=== PATIENT | female | born 1965 | race Hispanic/Latino ===

== ENCOUNTER 2017-04-01 15:25 | Emergency (ER) | payer OTHER, SELFPAY ==
[2017-04-01] MEDS ORDERED: Lidocaine Viscous Sol 2% 15 ml UD Cup ONE (16:02)
[2017-04-01] MEDS ORDERED: Mag-Al Plus 1200 MG/1200 MG/120 MG/30 ML UDCUP ONE (16:02)
[2017-04-01 16:19] LABS: #Basophils 0.1 thou/uL (0.0-0.2); #Eosinphils 0.1 thou/uL (0.0-0.7); #Lymphocytes 1.8 thou/uL (1.20-3.40); #Monocytes 0.2 thou/uL (0.11-0.59); #Neutrophils 2.5 thou/uL (1.40-6.50); %Basophils 1.4 % (0.0-1.0); %Eosinophils 1.3 % (0.0-10.0); %Lymphocytes 38.8 % (21.0-51.0); %Monocytes 3.8 % (0.0-10.0); %Neutrophils 54.7 % (42.0-75.0); Hemoglobin 14.7 g/dL (12.0-16.0); Mean Corpuscular HGB CONC 33.7 g/dL (32.0-36.0); Mean Corpuscular Hemoglobin 30.1 pg (27.0-31.0); Mean Corpuscular Volume 89.3 fl (81.0-99.0); Mean Platelet Volume 10.5 fL (7.4-10.4); Platelet Count 138 thou/uL (130-400); RBC Distribution Width 11.8 % (11.5-14.5); Red Blood Cell (RBC) Count 4.88 mill/uL (4.20-5.40); White Blood Cell (WBC) Count 4.5 thou/uL (4.8-10.8)
[2017-04-01 16:36] LABS: ALT (SGPT) 316 U/L (8-55); AST (SGOT) 315 U/L (5-34); Albumin 4.1 g/dL (3.5-5.0); Alkaline Phosphatase 218 U/L (40-150); Anion Gap 18 mmol/L (10-20); BUN (Urea Nitrogen) 9 mg/dL (9.8-20.1); CK (CPK) 132 U/L (29-168); Calc. Creatinine Clearance 0 mL/min (70-130); Calcium 10.3 mg/dL (7.8-10.44); Carbon Dioxide 26 mmol/L (22-29); Chloride 95 mmol/L (98-107); Estimated GFR-MDRD 85; Globulin 3.6 g/dL (2.4-3.5); Glucose 272 mg/dL (70-105); Potassium 3.7 mmol/L (3.5-5.1); Protein, Total 7.7 g/dL (6.0-8.3); Sodium 135 mmol/L (136-145)
[2017-04-01 16:39] LABS: Troponin I Less than 0.010 ng/mL (< 0.028)
[2017-04-01 16:57] LABS: Bilirubin, Total 0.8 mg/dL (0.2-1.2)
== END 2017-04-01 18:05 | disposition home or self-care (01) ==
LOC: SCSER 15:25
DX: K21.9 Gastro-esophageal reflux disease without esophagitis (principal); R74.8 Abnormal levels of other serum enzymes; E11.9 Type 2 diabetes mellitus without complications; E78.5 Hyperlipidemia, unspecified; I10 Essential (primary) hypertension; Z79.82 Long term (current) use of aspirin; Z79.84 Long term (current) use of oral hypoglycemic drugs; Z79.899 Other long term (current) drug therapy
CPT/HCPCS: 36416; 80053; 82550; 82553; 83690; 84484; 85025; 93005; 36415-59

== ENCOUNTER 2017-05-28 22:50 | Inpatient (IN) | payer OTHER, SELFPAY ==
[2017-05-29 00:16] LABS: #Lymphocytes 1.1 thou/uL (1.20-3.40); #Monocytes 0.5 thou/uL (0.11-0.59); #Neutrophils 9.7 thou/uL (1.40-6.50); %Basophils 0.4 % (0.0-1.0); %Eosinophils 0.4 % (0.0-10.0); %Lymphocytes 9.3 % (21.0-51.0); %Monocytes 4.4 % (0.0-10.0); %Neutrophils 85.6 % (42.0-75.0); Hemoglobin 14.2 g/dL (12.0-16.0); Mean Corpuscular HGB CONC 34.5 g/dL (32.0-36.0); Mean Corpuscular Hemoglobin 31.6 pg (27.0-31.0); Mean Corpuscular Volume 91.7 fl (81.0-99.0); Mean Platelet Volume 7.8 fL (7.4-10.4); Platelet Count 222 thou/uL (130-400); RBC Distribution Width 12.6 % (11.5-14.5); Red Blood Cell (RBC) Count 4.51 mill/uL (4.20-5.40); White Blood Cell (WBC) Count 11.4 thou/uL (4.8-10.8)
[2017-05-29 00:22] LABS: INR-International Normal Ratio 0.9; PTT 29.8 SEC (22.9-36.1); Prothrombin Time 12.6 SEC (12.0-14.7)
[2017-05-29 00:37] LABS: ALT (SGPT) 187 U/L (8-55); AST (SGOT) 115 U/L (5-34); Albumin 4.1 g/dL (3.5-5.0); Alkaline Phosphatase 392 U/L (40-150); Anion Gap 14 mmol/L (10-20); BUN (Urea Nitrogen) 11 mg/dL (9.8-20.1); Bilirubin, Total 3.2 mg/dL (0.2-1.2); CK (CPK) 121 U/L (29-168); Calc. Creatinine Clearance 0 mL/min (70-130); Calcium 9.8 mg/dL (7.8-10.44); Carbon Dioxide 26 mmol/L (22-29); Chloride 100 mmol/L (98-107); Estimated GFR-MDRD 86; Globulin 3.6 g/dL (2.4-3.5); Glucose 338 mg/dL (70-105); Potassium 3.8 mmol/L (3.5-5.1); Protein, Total 7.7 g/dL (6.0-8.3); Sodium 136 mmol/L (136-145)
[2017-05-29 00:40] LABS: CKMB 1.3 ng/mL (0-6.6); Troponin I Less than 0.010 ng/mL (< 0.028)
[2017-05-29 00:52] LABS: Lipase 2953 U/L (8-78)
[2017-05-29] MEDS ORDERED: Morphine 5 MG/ML SYRINGE ONE ×2 (00:59→05:01)
[2017-05-29] MEDS ORDERED: Ondansetron HCl/PF 4 MG/2 ML Vial ONE (01:01)
[2017-05-29] MEDS ORDERED: D5 1/2 NS w/20 mEq KCL 1,000 ML IV SCH (04:30)
[2017-05-29] MEDS ORDERED: Insulin Regular 300 UNITS/3 ML VIAL SC PRN ×2 (07:22)
[2017-05-29] MEDS ORDERED: Calcium Carbonate 500 MG ChewTAB PO PRN (07:22)
[2017-05-29] MEDS ORDERED: Ondansetron ODT 4 MG TAB PO PRN (07:22)
[2017-05-29] MEDS ORDERED: Senokot 8.6 MG TAB PO PRN (07:22)
[2017-05-29] MEDS ORDERED: Dextrose 50% Abboject 50 ML SYRINGE SLOW IVP PRN (07:22)
[2017-05-29] MEDS ORDERED: Dextrose 5% in Water 1,000 ML IV PRN (07:22)
[2017-05-29] MEDS ORDERED: Fentanyl 100 MCG/2 ML VIAL SLOW IVP PRN (07:22)
[2017-05-29] MEDS ORDERED: Ondansetron HCl/PF 4 MG/2 ML Vial IVP PRN (07:22)
[2017-05-29] MEDS ORDERED: hydrALAZINE 20 MG/ML VIAL SLOW IVP PRN (07:27)
[2017-05-29] MEDS ORDERED: Meropenem 1 GM in Sodium Chloride 0.9% 100 ML SLOW IVP SCH (07:30)
[2017-05-29] MEDS ORDERED: Meropenem 1 GM in Sodium Chloride 0.9% 100 ML IVPB SCH (07:30)
[2017-05-29] MEDS ORDERED: Meropenem 1 GM in Sterile Water 20 ML SLOW IVP SCH (07:30)
--- NOTE | 2017-05-29 07:36 | HP ---
PRIMARY CARE PHYSICIAN: [facility]. PRIMARY COLLISION TECHNICIAN: Dr. Becker Case CHIEF COMPLAINT: Abdominal discomfort since 5:00 p.m. HISTORY OF PRESENT ILLNESS: The patient is a 51-year-old female with hypertension, cholelithiasis, s tatus post cholecystectomy in 2009 and recent EGD presented to the emergency room with sudden onset o f abdominal discomfort that started around 5:00 p.m. after dinner. She had associated nausea with se veral episodes of vomiting. The vomitus contained food which she had eaten. She denies any diarrhea , constipation. She normally has bowel movements every day. Abdominal pain was 10/10, localized in the epigastric region without any aggravating or relieving factor. It was constant. No fever or chi lls reported. In the emergency room at [place] her initial vital signs showed temperature 97.7 with respiration of 1 9, pulse rate 83, blood pressure 158/95 with O2 saturation 96% on room air. Her workup was consisten t with acute pancreatitis. She received IV fluids, morphine, Zofran and Toradol at [facility] and was tr ansferred to this facility for hospital admission. PAST MEDICAL HISTORY: 1. Diabetes mellitus type 2. 2. Hyperlipidemia. 3. Hypertension. 4. Cholelithiasis status post laparoscopic cholecystectomy in 2009. PAST SURGICAL HISTORY: 1. Cholecystectomy. 2. Hernia repair. 3. Recent EGD. ALLERGIES: No known drug allergies. CURRENT HOME MEDICATIONS: Per ER record, the patient is on metformin, lovastatin and lisinopril. Do sages to be confirmed. SOCIAL HISTORY: The patient currently lives at home with her family. No smoking, alcohol or drug us e. FAMILY HISTORY: Negative for heart disease. REVIEW OF SYSTEMS: The following complete review of systems was negative, unless otherwise mentioned in the HPI or below: Constitutional: Weight loss or gain, ability to conduct usual activities. Skin: Rash, itching. Eyes: Double vision, pain. ENT/Mouth: Nose bleeding, neck stiffness, pain, tenderness. Cardiovascular: Palpitations, dyspnea on exertion, orthopnea. Respiratory: Shortness of breath, wheezing, cough, hemoptysis, fever or night sweats. Gastrointestinal: Poor appetite, abdominal pain, heartburn, nausea, vomiting, constipation, or diarrhea. Genitourinary: Urgency, frequency, dysuria, nocturia. Musculoskeletal: Pain, swelling. Neurologic/Psychiatric: Anxiety, depression. Allergy/Immunologic: Skin rash, bleeding tendency. PHYSICAL EXAMINATION: VITAL SIGNS: As discussed above. GENERAL: A 51-year-old female in mild to moderate distress due to abdominal discomfort. HEENT: Head; atraumatic, normocephalic, sclerae are anicteric. Moist mucous membrane, no oral lesio n. NECK: Supple, no JVD appreciated. No carotid bruit. LUNGS: Clear to auscultation bilaterally. HEART: S1, S2 present. Regular rate and rhythm. No murmur, rubs, or gallops appreciated. ABDOMEN: Soft, tenderness in the epigastric region with voluntary guarding. Bowel sounds present, n o costovertebral angle tenderness. EXTREMITIES: No edema or calf tenderness. NEUROLOGIC: Grossly nonfocal, moves all four extremities. PSYCHIATRY: Alert, awake, oriented x3. SKIN: Warm and dry. LYMPH NODES: No palpable lymph nodes in the neck. PERIPHERAL VASCULAR: Radial pulses palpable bilaterally. MUSCULOSKELETAL: No joint swelling or tenderness. LABORATORY AND X-RAY FINDINGS: 1. CBC showed WBC 11 with hemoglobin 15.5. 2. PT, INR, PTT normal range. 3. Amalase 1671, lipase 6686, total bilirubin 3.2 with AST 115, ALT 187, alkaline phosphatase 392. Labs at [facility] showed total bilirubin 2.9 with AST 135, ALT 222, alkaline phosphatase 417. Troponins were negative. Chest x-ray by my review was negative for infiltrate. Right upper quadrant ultrasound was negative f or significant biliary tree dilatation. Common duct measured approximately 7-8 mm with possible fatt y infiltration of the liver. Visible pancreas was unremarkable. EKG by my review showed sinus rhyth m with right bundle branch block, left axis deviation. IMPRESSION AND PLAN: 1. Acute pancreatitis, suspected gallstone pancreatitis. 2. Diabetes mellitus type 2. 3. Abnormal liver function tests secondary to #1. 4. Dehydration. 5. Hypertension. 6. Hyperlipidemia. 7. Chronic kidney disease stage 2. PLAN: The patient will be monitored on the telemetry unit. Gastroenterology will be consulted. A r ight upper quadrant ultrasound was negative for obstructive pathology. She may have passed a stone. We will empirically cover with meropenem as well. Continue aggressive IV fluid hydration. Pain con trolled. Plan of care was discussed with the patient and the family at the bedside. They stated understanding . Insulin sliding scale will be started.
--- NOTE | 2017-05-29 07:45 | RAD ---
PORTABLE CHEST: Date: 05/28/17 HISTORY: Nausea and vomiting. Pancreatitis. Abdominal pain. FINDINGS: Lung kramer are clear. No evidence of infiltrate. Heart and mediastinum unremarkable. IMPRESSION: No acute abnormality. POS: [facility]
--- NOTE | 2017-05-29 09:46 | ULT ---
PRELIMINARY REPORT/[facility]/EMERGENTY AFTER-HOURS PROCEDURE US Abdomen Limited, Right Upper Quadrant CLINICAL HISTORY: 51 years old, female; Pain and signs and symptoms; Nausea and vomiting; Abdominal pain; Epigastric; P rior surgery; Surgery date: 6+ months; Surgery type: Cholecystectomy (2011) TECHNIQUE: Real-time ultrasound of the right upper quadrant with image documentation. COMPARISON: No relevant prior studies available. FINDINGS: Prior cholecystectomy. No significant biliary dilation for a post cholecystectomy patient, common duct measures 7-8 mm. Some what increased echogenicity of the liver may indicate fatty infiltration. Otherwise essentially unrem arkable liver, no focal abnormality. Visible pancreas unremarkable. Images of the right kidney show no hydronephrosis. IMPRESSION: Prior cholecystectomy, no significant biliary tree dilation. Other findings discussed above. Thank you for allowing us to participate in the care of your patient Dictated and Authenticated by: Eugenio Mcgill MD 05/29/2017 1:24 AM Central Time ([place] & [place]) FINAL REPORT RIGHT UPPER QUADRANT ULTRASOUND: Date: 05/28/17 FINDINGS/IMPRESSION: I agree with the preliminary report given by Brie. POS: [facility]
[2017-05-29] MEDS ORDERED: Morphine 5 MG/ML SYRINGE SLOW IVP PRN (10:03)
[2017-05-29] MEDS: Ketorolac Tromethamine 30 MG/ML VIAL IVP PRN ×2 (12:22→21:12)
[2017-05-29] MEDS: Sodium Chloride 0.9% 1,000 ML IV SCH ×3 (12:33→21:08)
[2017-05-29] MEDS: Meropenem 1 GM in Sodium Chloride 0.9% 100 ML IVPB SCH (17:22)
--- NOTE | 2017-05-29 18:51 | CON ---
GASTROENTEROLOGY CONSULTATION NOTE DATE OF CONSULTATION: 05/29/2017 HISTORY OF PRESENT ILLNESS: Ms. Kelly is a 51-year-old woman who has been followed by my GI collea pramod, Dr. Eugenio Gross for intermittent abdominal pain over the last couple of months. She complains of epigastric pain that is intermittent and can radiate up towards her chest. She gets the pain a few times per day and is aching, burning in nature. The pain tends to come on a couple of hours after ea ting and lasts for around 30 minutes at a time. She has undergone prior cholecystectomy. When she w as evaluated by Dr. Gross, she was noted to have elevated liver function tests and she underwent initi al serologic workup for that, which was negative. She underwent esophagogastroduodenoscopy on 2017, which showed erosive gastritis and she was started on Protonix for that. She returned with wor sening pain. Yesterday, she developed more severe epigastric pain and at this time, it is persistent and associated with some nausea and vomiting. She had an ultrasound performed, which showed only mi ld dilation of the common bile duct at 7-8 mm, which is a commonly seen post-cholecystectomy. Previo usly, her bilirubin was normal; however, on presentation at this time, her bilirubin was elevated. P reviously, her lipase was normal and at this time, she was found to have acute pancreatitis with a li pase of 2953. Her pain is much better now. She received 2 liters of fluids in the ER and has been r eceiving normal saline at 200 mL per hour. She had no fever or chest pain or shortness of breath. PAST MEDICAL HISTORY: Erosive gastritis diagnosed in April, diabetes mellitus type 2, hyperlipidemia and hypertension. PAST SURGICAL HISTORY: Cholecystectomy in 2009 and hernia repair. FAMILY HISTORY: Negative for GI malignancy. SOCIAL HISTORY: No alcohol, tobacco or drugs. ALLERGIES: No known drug allergies. MEDICATIONS PRIOR TO ADMISSION: Pantoprazole 40 mg twice daily; however, it is unclear if she has ac tually filled this prescription. Metoprolol, lisinopril, amlodipine with benazepril and metformin. REVIEW OF SYSTEMS: Negative x10 systems reviewed except as stated in the history of present illness. PHYSICAL EXAMINATION: VITAL SIGNS: Temperature 98.4, pulse 66 and blood pressure 129/82. GENERAL: She is in no acute distress. She is alert and oriented x3. HEENT: Eyes have no scleral icterus. Oropharynx is clear, without lesions. NECK: No cervical or supraclavicular lymphadenopathy. LUNGS: Clear to auscultation bilaterally. HEART: Regular rate and rhythm without murmur. ABDOMEN: Soft. She is tender in the epigastric region, but not tender, otherwise. Her bowel sounds are present. EXTREMITIES: No lower extremity edema. IMAGING DATA: Ultrasound of the right upper quadrant reveals a 7-8 mm common bile duct with post-cho lecystectomy changes. There is some evidence of fatty infiltration of the liver. IMPRESSION: Gallstone pancreatitis. The elevated transaminases, alkaline phosphatase and bilirubin combined with the lipase are indicative of this. Her bile duct is only minimally dilated. Given donald t she had symptoms previously with a normal bilirubin and without significant bile duct dilation, I t hink endoscopic retrograde cholangiopancreatography will be required to verify that her bile duct is clear. I think she will be at high risk for recurrent episodes of biliary pancreatitis if we do not confirm this duct to be clear as her previous serologic testing was not confirmatory for a retained s tone. The pancreatitis itself is not severe. She does not have signs of secondary organ failure. H er hemoglobin is at baseline. Her creatinine is normal. She has no respiratory difficulty and is ma christina good urine output on current IV fluids. RECOMMENDATIONS: 1. Recheck liver tests and lipase and hemoglobin tomorrow morning. 2. She has been on meropenem. I cannot confirm if blood cultures have been drawn or not at this poi nt. 3. Plan ERCP tomorrow.
[2017-05-30] MEDS: Sodium Chloride 0.9% 1,000 ML IV SCH ×6 (00:01→19:54)
[2017-05-30] MEDS: Meropenem 1 GM in Sodium Chloride 0.9% 100 ML IVPB SCH ×3 (00:13→19:37)
[2017-05-30 05:24] LABS: #Eosinphils 0.1 thou/uL (0.0-0.7); #Lymphocytes 1.7 thou/uL (1.20-3.40); #Monocytes 0.3 thou/uL (0.11-0.59); #Neutrophils 4.3 thou/uL (1.40-6.50); %Basophils 0.5 % (0.0-1.0); %Lymphocytes 26.7 % (21.0-51.0); %Monocytes 5.3 % (0.0-10.0); %Neutrophils 66.5 % (42.0-75.0); Hemoglobin 13.2 g/dL (12.0-16.0); Mean Corpuscular HGB CONC 33.3 g/dL (32.0-36.0); Mean Corpuscular Volume 92.9 fl (81.0-99.0); Mean Platelet Volume 8.1 fL (7.4-10.4); Platelet Count 186 thou/uL (130-400); RBC Distribution Width 12.7 % (11.5-14.5); Red Blood Cell (RBC) Count 4.25 mill/uL (4.20-5.40); White Blood Cell (WBC) Count 6.5 thou/uL (4.8-10.8)
[2017-05-30 05:33] LABS: ALT (SGPT) 108 U/L (8-55); AST (SGOT) 43 U/L (5-34); Albumin 3.4 g/dL (3.5-5.0); Alkaline Phosphatase 319 U/L (40-150); Anion Gap 12 mmol/L (10-20); BUN (Urea Nitrogen) 9 mg/dL (9.8-20.1); Calc. Creatinine Clearance 124 mL/min (70-130); Calcium 8.6 mg/dL (7.8-10.44); Carbon Dioxide 24 mmol/L (22-29); Chloride 105 mmol/L (98-107); Estimated GFR-MDRD Greater than 90; Globulin 3.2 g/dL (2.4-3.5); Glucose 115 mg/dL (70-105); Lipase 243 U/L (8-78); Potassium 3.1 mmol/L (3.5-5.1); Protein, Total 6.6 g/dL (6.0-8.3); Sodium 138 mmol/L (136-145)
[2017-05-30 09:51] VITALS: BMI 30.6
--- NOTE | 2017-05-30 13:27 | PDOC.PN ---
- Subjective Encounter Start Date: 05/30/17 Encounter Start Time: 13:29 Subjective: No new complaints -: No acute events overnight. - Objective Resuscitation Status: Resuscitation Status FULL:Full Resuscitation MAR Reviewed: Yes Vital Signs & Weight: Vital Signs (12 hours) Temp Pulse Resp BP BP BP BP 05/30/17 11:31 98.3 F 64 18 154/82 H 05/30/17 08:15 98.2 F 65 17 149/80 H 147/84 H 139/76 05/30/17 08:00 98.2 F 65 17 05/30/17 04:00 98.2 F 67 20 131/77 Pulse Ox 05/30/17 11:31 95 05/30/17 08:15 95 05/30/17 08:00 05/30/17 04:00 96 Weight Admit Weight 149 lb 8 oz Weight 151 lb 9.6 oz I&O: 05/29/17 05/30/17 05/31/17 06:59 06:59 06:59 Intake Total 3031 Output Total 1600 Balance 1431 Result Diagrams: 05/30/17 04:37 05/30/17 04:37 Additional Labs: Accuchecks 05/30/17 05/30/17 05/30/17 11:07 04:14 00:09 POC Glucose 104 111 H 100 05/29/17 05/29/17 20:40 16:38 POC Glucose 122 H 133 H Phys Exam - Physical Examination Constitutional: NAD HEENT: PERRLA, moist MMs, sclera anicteric, oral pharynx no lesions Neck: no JVD, supple, full ROM Respiratory: no wheezing, no rales, no rhonchi, clear to auscultation bilateral Cardiovascular: RRR, no significant murmur, no rub Gastrointestinal: soft, non-tender, no distention, positive bowel sounds Musculoskeletal: no edema, pulses present Neurological: non-focal, moves all 4 limbs Psychiatric: normal affect, A&O x 3 Skin: no rash, normal turgor Dx/Plan (1) Acute gallstone pancreatitis Code(s): K85.10 - BILIARY ACUTE PANCREATITIS WITHOUT NECROSIS OR INFECTION Status: Acute Comment: Stable. Pain well controlled. Scheduled for ERCP today. (2) HTN (hypertension) Code(s): I10 - ESSENTIAL (PRIMARY) HYPERTENSION Status: Acute Qualifiers: Hypertension type: essential hypertension Qualified Code(s): I10 - Essential (primary) hypertension Comment: Fairly well controlled. Continue home regimen. (3) HLD (hyperlipidemia) Code(s): E78.5 - HYPERLIPIDEMIA, UNSPECIFIED Status: Acute Qualifiers: Hyperlipidemia type: unspecified Qualified Code(s): E78.5 - Hyperlipidemia , unspecified Comment: Continue home regimen. (4) DM2 (diabetes mellitus, type 2) Status: Acute Qualifiers: Diabetes mellitus buttermaker continuous churn insulin use: with correction use Diabetes mellitus complication status: with kidney complications Diabetes mellitus complication detail: with chronic kidney disease Chronic kidney disease stage : stage 2 (mild) Qualified Code(s): E11.22 - Type 2 diabetes mellitus with diabetic chronic kidney disease; N18.2 - Chronic kidney disease, stage 2 (mild) ; N18.2 - Chronic kidney disease, stage 2 (mild); Z79.4 - intermediate teacher (current) use of insulin; Z79.4 - nursing home (current) use of insulin; Z79.4 - nursing home ( current) use of insulin; Z79.4 - intermediate teacher (current) use of insulin Comment: Controlled. COntinue current regimen. - Plan cont current plan of care, continue antibiotics * . Review of Systems - Medications/Allergies Allergies/Adverse Reactions: Allergies Allergy/AdvReac Type Severity Reaction Status Date / Time No Known Drug Allergies Allergy Verified 05/29/17 16:07 Medications: Current Medications Calcium Carbonate (Tums) 1,000 mg PO Q4H PRN PRN Reason: Heartburn or Indigestion Dextrose/Water (Dextrose 50%) 25 gm SLOW IVP PRN PRN PRN Reason: Hypoglycemia Glucagon (Glucagon) 1 mg IM PRN PRN PRN Reason: Hypoglycemia Hydralazine HCl (Apresoline) 5 mg SLOW IVP Q4H PRN PRN Reason: SBP Greater Than 180 Dextrose/Water (D5w) 1,000 mls @ 0 mls/hr IV .Q0M PRN; As Directed PRN Reason: Hypoglycemia Sodium Chloride (Normal Saline 0.9%) 1,000 mls @ 200 mls/hr IV .Q5H RICARDO Last Admin: 05/30/17 08:22 Dose: 1,000 mls Meropenem 1 gm/ Sodium (Chloride) 100 mls @ 200 mls/hr IVPB Q8H [facility]ICARD[facility] Last Admin: 05/30/17 08:22 Dose: 100 mls Insulin Human Regular (Humulin R) 0 units SC .MILD SLIDING SCALE PRN PRN Reason: Mild Correctional Scale Insulin Human Regular (Humulin R) 0 units SC .BEDTIME SLIDING SC PRN PRN Reason: Bedtime Correctional Scale Ketorolac Tromethamine (Toradol) 15 mg IVP Q6H PRN PRN Reason: Pain Stop: 06/03/17 12:09 Last Admin: 05/29/17 21:12 Dose: 15 mg Ondansetron HCl (Zofran Odt) 4 mg PO Q6H PRN PRN Reason: Nausea/Vomiting Ondansetron HCl (Zofran) 4 mg IVP Q6H PRN PRN Reason: Nausea/Vomiting Potassium Chloride (K-Dur) 40 meq PO BID-[facility] Stop: 05/31/17 08:01 Senna (Senokot) 2 tab PO HSPRN PRN PRN Reason: Constipation Sodium Chloride (Flush - Normal Saline) 10 ml IVF Q12HR [facility] Last Admin: 05/30/17 08:22 Dose: Not Given Sodium Chloride (Flush - Normal Saline) 10 ml IVF PRN PRN PRN Reason: Saline Flush Last Admin: 05/29/17 12:24 Dose: 10 ml
[2017-05-30] MEDS ORDERED: Iothalamate Meglumine 60% 50 ML VIAL FS ONE (14:52)
[2017-05-30] MEDS ORDERED: Indomethacin 50 MG SUPP ONE (14:55)
[2017-05-30] MEDS ORDERED: Fentanyl 100 MCG/2 ML VIAL ONE ×2 (15:02→17:31)
[2017-05-30] MEDS ORDERED: HYDROmorphone 0.5 MG/0.5 ML SYRINGE ONE (15:03)
[2017-05-30] MEDS ORDERED: Ondansetron HCl/PF 4 MG/2 ML Vial ONE (16:52)
[2017-05-30] MEDS ORDERED: PROPOFOL 200 MG/20 ML VIAL ONE (16:52)
[2017-05-30] MEDS ORDERED: Lidocaine 1% PF 5 ML VIAL ONE (16:52)
[2017-05-30] MEDS ORDERED: Dexamethasone 20 MG/5 ML VIAL ONE (16:52)
--- NOTE | 2017-05-30 17:03 | RAD ---
ERCP INTRAOPERATIVE FLUOROSCOPY 05/30/17 HISTORY: Right upper quadrant pain. FINDINGS/IMPRESSION: Intraoperative fluoroscopy was provided for ERCP. Spot fluoroscopic images show endoscopic catheter o verlying the right upper quadrant with opacification of a nondilated common bile duct. No filling def ects are reliably demonstrated. Gallbladder is surgically absent. POS: [facility]
[2017-05-30] MEDS ORDERED: Promethazine HCl 25 MG/ML VIAL SLOW IVP PRN (17:14)
[2017-05-30] MEDS ORDERED: Promethazine HCl 25 MG/ML VIAL IM PRN (17:14)
[2017-05-30] MEDS ORDERED: Ondansetron HCl/PF 4 MG/2 ML Vial IVP PRN (17:14)
--- NOTE | 2017-05-30 19:18 | OP ---
DATE OF PROCEDURE: 05/30/2017 PROCEDURE: Endoscopic retrograde cholangiopancreatography with sphincterotomy and balloon stone extr action. PREOPERATIVE DIAGNOSES: Choledocholithiasis and gallstone pancreatitis. OPERATIVE NOTE: Informed consent was obtained from the patient. She was sedated with general anesth esia. She was placed in the prone position and the duodenoscope was advanced easily to the second po rtion of the duodenum. The ampulla was identified and appeared unremarkable with good bile flow. Th e common bile duct was selectively cannulated easily with the wire on first attempt. The cannula was advanced into the bile duct and cholangiogram was performed. There was an 8 mm common bile duct wit h unremarkable hepatic ducts. There was a 7 mm filling defect in the distal common bile duct. A lar ge sphincterotomy was performed. The duct was then swept with a 9 mm balloon and two 6-7 mm black sp it pigment stones were extracted from the duct. The occlusion cholangiogram then confirmed the bile duct to be clear. There was good drainage of the bile and contrast from the duct. IMPRESSION: 1. Cholangiogram showing filling defect in the distal common bile duct with normal hepatic ducts. 2. Large sphincterotomy performed. 3. Two 6-7 mm black pigment stones removed with the balloon. 4. Occlusion cholangiogram confirms the duct to be clear. RECOMMENDATIONS: 1. Check liver function tests in the morning. 2. Advance diet. 3. Anticipate discharge home tomorrow if she is doing well.
[2017-05-30] MEDS: Heparin 5,000 UNITS/ML VIAL SC SCH ×2 (19:27→20:41)
[2017-05-30] MEDS: Potassium Chloride 20 MEQ TAB PO SCH ×2 (19:37→20:43)
[2017-05-31] MEDS: Meropenem 1 GM in Sodium Chloride 0.9% 100 ML IVPB SCH ×2 (00:08→08:42)
[2017-05-31 04:18] LABS: #Lymphocytes 1.1 thou/uL (1.20-3.40); #Monocytes 0.1 thou/uL (0.11-0.59); #Neutrophils 4.9 thou/uL (1.40-6.50); %Basophils 0.3 % (0.0-1.0); %Eosinophils 0.6 % (0.0-10.0); %Lymphocytes 18.3 % (21.0-51.0); %Monocytes 2.1 % (0.0-10.0); %Neutrophils 78.6 % (42.0-75.0); Hemoglobin 13.6 g/dL (12.0-16.0); Mean Corpuscular HGB CONC 34.1 g/dL (32.0-36.0); Mean Corpuscular Volume 90.9 fl (81.0-99.0); Mean Platelet Volume 8.2 fL (7.4-10.4); Platelet Count 206 thou/uL (130-400); RBC Distribution Width 12.3 % (11.5-14.5); White Blood Cell (WBC) Count 6.2 thou/uL (4.8-10.8)
[2017-05-31 04:35] LABS: ALT (SGPT) 86 U/L (8-55); AST (SGOT) 32 U/L (5-34); Albumin 3.6 g/dL (3.5-5.0); Alkaline Phosphatase 313 U/L (40-150); Anion Gap 13 mmol/L (10-20); BUN (Urea Nitrogen) 12 mg/dL (9.8-20.1); Bilirubin, Total 0.6 mg/dL (0.2-1.2); Calc. Creatinine Clearance 107 mL/min (70-130); Calcium 9.5 mg/dL (7.8-10.44); Carbon Dioxide 24 mmol/L (22-29); Chloride 103 mmol/L (98-107); Estimated GFR-MDRD Greater than 90; Globulin 3.4 g/dL (2.4-3.5); Glucose 265 mg/dL (70-105); Lipase 36 U/L (8-78); Potassium 3.7 mmol/L (3.5-5.1); Sodium 136 mmol/L (136-145)
[2017-05-31 07:34] VITALS: TEMP 98.2
[2017-05-31] MEDS: Heparin 5,000 UNITS/ML VIAL SC SCH (08:42)
[2017-05-31] MEDS: Potassium Chloride 20 MEQ TAB PO SCH (08:42)
[2017-05-31 11:22] VITALS: BP 160/94
[2017-05-31] MEDS ORDERED: Insulin Detemir 100 UNITS/ML 10 UNITS in Pre-Filled Syringe 1 EACH SC SCH (21:00)
[2017-05-31] MEDS ORDERED: metFORMIN 500 MG TAB PO SCH (21:00)
[2017-05-31] MEDS ORDERED: Non-Formulary Item 1 EACH (Levemir Flexpen [Levemir Flexpen] 10 UNIT) SC SCH (21:00)
[2017-06-01] MEDS ORDERED: Pioglitazone HCl 15 MG TAB PO SCH (09:00)
[2017-06-01] MEDS ORDERED: glyBURIDE 5 MG TAB PO SCH (09:00)
--- NOTE | 2017-06-02 14:43 | DIS ---
DATE OF ADMISSION: 05/29/2017 DATE OF DISCHARGE: 05/31/2017 DISCHARGE DIAGNOSES: Choledocholithiasis, gallstone pancreatitis, hyperlipidemia, hypertension, type 2 diabetes mellitus. HISTORY OF PRESENT ILLNESS/HOSPITAL COURSE: A 51-year-old female with a history of hypertension, cho lelithiasis, status post cholecystectomy in 2009 and recent EGD presented to the emergency room with sudden onset of abdominal discomfort that started around 5:00 p.m. after dinner, was associated with nausea and several episodes of vomiting. Vomitus consisted of recently ingested meal. She denies di arrhea, constipation. Abdominal pain was 10/10, localized to the epigastric region without any aggra vated or alleviating factors, described as constant. There was no fever or chills associated. In [facility] emergency room at [place], initial temperature was 97.7 degrees Fahrenheit, respiratory rate 19, pul se rate 83, blood pressure 158/95 with saturations of 96% on room air. Her workup was consistent wit h acute pancreatitis. She received IV fluids, morphine, Zofran and Toradol at [place] and was transfe rred to [facility] for further evaluation. Her abdominal ultrasound showed prior cholecyste ctomy with no significant biliary tree dilatation. She had an ERCP x-ray which showed an endoscopic catheter overlying the right upper quadrant with opacification of a nondilated common bile duct. No filling defects related with the demonstration. Gallbladder surgically absent. She was evaluated by Gastroenterology and she had ERCP with sphincterotomy and balloon stone extraction. She tolerated t he procedure well and antibiotics were discontinued. She had been placed on meropenem. Patient was able to tolerate meals and was deemed stable for discharge. She is to follow up with her primary [facility] physician within 1 week of discharge. DISCHARGE MEDICATIONS: Protonix 40 mg daily, metformin 1000 mg twice a day, glyburide 1 tablet daily , Levemir 10 units at bedtime, Pioglitazone 30 mg daily, insulin aspart 7 units subcutaneously daily in the evenings prior to eating. PHYSICAL EXAMINATION: She was examined on the day of discharge. VITAL SIGNS: Temperature 98.2 degrees Fahrenheit, pulse rate 65, respiratory rate 20, oxygen saturat ion 95% on room air, blood pressure 160/94. GENERAL: Not in acute distress, sitting comfortably in bed. HEENT: Moist mucous membranes, PERRLA, EOMI, not pale, anicteric. NECK: Supple, full range of movement. RESPIRATORY: Vesicular breath sounds bilaterally. No wheezes or rales. CARDIOVASCULAR: S1 and S2 only with regular rate and rhythm. No murmurs, rubs or gallops. GASTROINTESTINAL: Soft, nontender, nondistended. Bowel sounds present and normoactive. No hepatosp lenomegaly. MUSCULOSKELETAL: No edema. NEUROLOGIC: Alert and well oriented to time, place and person. No focal deficits. PSYCHIATRIC: Normal mood and affect. SKIN: Warm, dry, well perfused. No rashes or lesions. LABORATORY DATA: WBC 6.2, hemoglobin 13.6, platelet count 206. Sodium 136, potassium 3.7, chloride 103, carbon dioxide 24, anion gap 13, BUN 12, creatinine 0.66, glucose 265, calcium 9.5. IMAGING: ERCP x-ray, chest x-ray, abdominal ultrasound. PROCEDURES: Endoscopic retrograde cholangiopancreatography with sphincterotomy and balloon stone ext raction. Consult Gastroenterology. CONDITION AT DISCHARGE: Stable and improved. DIET: Diabetic, low salt with low fat and cholesterol. CARE GOALS: To follow up with primary care physician within 2 weeks of discharge. ACTIVITY: Resume as tolerated. DISCHARGE TIME: Sixty five minutes including chart review and documentation.
== END 2017-05-31 11:32 | disposition home or self-care (01) | DRG 440 ==
LOC: ERS 22:50 → ERHOLD 05-29 01:29 → 2NO 05-29 09:26 → T4-A 05-30 16:30
PROVIDERS: ADMIT Internal Medicine; ATTEND Internal Medicine
PROC: 0FC98ZZ Extirpation of Matter from Common Bile Duct, Via Natural or Artificial Opening Endoscopic (ICD-10-PCS; principal; 2017-05-30)
PROC: BF131ZZ Fluoroscopy of Gallbladder and Bile Ducts using Low Osmolar Contrast (ICD-10-PCS; 2017-05-30)
DX: K85.10 Biliary acute pancreatitis without necrosis or infection (principal); E11.22 Type 2 diabetes mellitus with diabetic chronic kidney disease; K80.50 Calculus of bile duct without cholangitis or cholecystitis without obstruction; E78.5 Hyperlipidemia, unspecified; Z79.84 Long term (current) use of oral hypoglycemic drugs; E86.0 Dehydration; N18.2 Chronic kidney disease, stage 2 (mild); I12.9 Hypertensive chronic kidney disease with stage 1 through stage 4 chronic kidney disease, or unspecified chronic kidney disease; K29.70 Gastritis, unspecified, without bleeding; Z87.891 Personal history of nicotine dependence
CPT/HCPCS: 36415; 36416; 71045; 74330; 76705; 80053; 82150; 83690; 83880; 84478; 85025; 85610; 85730; 93005; 96361; 96365; 96366; 96375; J2270; A4216; J1100; J1170; J1610; J1644; J1885; J2001; J2185; J2405; J2704; J3010; J7050; Q9961